=== PATIENT | female | born 1995 | race Caucasian/White ===

== ENCOUNTER 2017-09-30 13:25 | Emergency (ER) | payer OTHER ==
[~2017-09-30] VITALS: Ht 165.1 cm; Wt 75.9 kg
[2017-09-30 13:29] VITALS: TEMP 98.2
[2017-09-30 14:50] VITALS: BP 118/64; PULSE 71
== END 2017-09-30 14:50 | disposition home or self-care (01) ==
LOC: COL.ER 13:25
DX: S93.401A Sprain of unspecified ligament of right ankle, initial encounter (principal); X50.0XXA Overexertion from strenuous movement or load, initial encounter; Y92.009 Unspecified place in unspecified non-institutional (private) residence as the place of occurrence of the external cause